=== PATIENT | male | born 1965 | race Caucasian/White ===

== ENCOUNTER 2017-07-08 18:00 | Emergency (ER) | payer OTHER ==
[~2017-07-08] VITALS: Ht 162.6 cm; Wt 79.5 kg
[2017-07-08] MEDS ORDERED: PROZ10 PO (18:15)
[2017-07-08] MEDS ORDERED: RISP.5 PO (18:15)
[2017-07-08 18:52] VITALS: BP 136/83
== END 2017-07-08 19:16 | disposition left against medical advice (07) ==
LOC: EMS 18:05
DX: F41.9 Anxiety disorder, unspecified (principal); Z53.21 Procedure and treatment not carried out due to patient leaving prior to being seen by health care provider

== ENCOUNTER 2017-07-08 19:34 | Emergency (ER) | payer OTHER ==
[~2017-07-08] VITALS: Ht 162.6 cm; Wt 79.5 kg
[~2017-07-08 19:34] MED LIST: PROZ10 PO; RISP.5 PO
[2017-07-08] MEDS ORDERED: LORazepam 1 MG TABLET PO ONE (20:30)
[2017-07-08 22:25] VITALS: BP 133/87
== END 2017-07-08 22:26 | disposition home or self-care (01) ==
LOC: EMS 19:37
DX: F41.9 Anxiety disorder, unspecified (principal); F32.9 Major depressive disorder, single episode, unspecified; I10 Essential (primary) hypertension; F17.210 Nicotine dependence, cigarettes, uncomplicated; F15.90 Other stimulant use, unspecified, uncomplicated
CPT/HCPCS: 99284; 99406